=== PATIENT | female | born 1970 | race Hispanic/Latino ===

== ENCOUNTER 2017-12-20 23:45 | Emergency (ER) | payer OTHER, SELFPAY ==
[2017-12-20 23:53] VITALS: BP 113/70; PULSE 66; RESP 16; TEMP 36.6; O2SAT 98; BMI 27.4
--- NOTE | 2017-12-21 00:12 | ED_ITS ---
HPI - Back Pain/Injury General Chief Complaint: Back Pain/Injury Stated Complaint: SEVERE BACK PAIN Time Seen by Provider: 12/20/17 23:48 Source: patient Mode of arrival: ambulatory Limitations: no limitations History of Present Illness HPI Narrative: Patient is here for bilateral lower back pain. 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 She states that yesterday she lifted a greater than 50 lb bag of laundry and ?felt a pop ?states that has had pain since then. Had 1 dose of Tylenol today. Came back to work today and has had continued pain. No radiation to her legs. No saddle anesthesia. No fevers. No prior history of back problems. No loss of bowel or bladder. Related Data Previous Rx's Medication Instructions Recorded albuterol sulfate [Ventolin HFA] 0 INH Q4H #8 gm 04/05/16 fluticasone 0 INTRANASAL BID #16 gm 04/05/16 Allergies Allergy/AdvReac Type Severity Reaction Status Date / Time No Known Drug Allergies Allergy Verified 12/20/17 23:59 Review of Systems Constitutional Denies chills, Denies fever(s), Denies lethargy and Denies weakness Cardiovascular Denies chest pain, Denies irregular heart rhythm, Denies lightheadedness, Denies palpitations, Denies dyspnea, Denies dyspnea on exertion and Denies orthopnea Respiratory Denies cough, Denies dyspnea, Denies dyspnea on exertion and Denies wheezing Gastrointestinal Comments: No loss of bowel control Genitourinary Comments: No loss of bladder control Musculoskeletal Comments: Lower back pain Integumentary/Breasts Denies pruritus, Denies erythema, Denies rash and Denies wounds Neurologic Denies weakness Endocrine Denies palpitations Hematologic/Lymphatic Denies easy bruising Allergic/Immunologic Denies wheezing FOR[facility]LY [facility] Social History Smoking Status: Never smoker Exam Initial Vital Signs Initial Vital Signs: Vital Signs Temperature 98 F 12/20/17 23:53 Pulse Rate 66 12/20/17 23:53 Respiratory Rate 16 12/20/17 23:53 Blood Pressure 113/70 12/20/17 23:53 Pulse Oximetry 98 12/20/17 23:53 Const General: cooperative and well developed Nutritional Appearance: well nourished Orientation: alert, awake, oriented x3 and not confused Back/Spine/Pelvis Back: normal to inspection, back tenderness (Bilateral lower back) and No CVA tenderness Skin General: no rashes or lesions noted, No jaundice and No petechiae Neuro Other: Sensation intact bilateral lower extremities Extrem General: full ROM, no clubbing, cyanosis or edema, no pedal edema and no calf tenderness Course Orders Ordered: Discontinued Medications Ketorolac Tromethamine (Toradol) 30 mg IM NOW ONE Stop: 12/21/17 00:20 Last Admin: 12/21/17 00:29 Dose: 30 mg Vital Signs - 8 hr 12/20/17 23:53 Temperature 98 F Pulse Rate 66 Respiratory Rate 16 Blood Pressure 113/70 Pulse Oximetry 98 MDM - Back Pain/Injury MDM Narrative Medical decision making narrative: Patient with history and physical exam consistent with musculoskeletal low back pain. No red flag symptoms. No indications for radiologic studies. Patient was given a dose of Toradol here in the emergency department. She has the next 2 days off of work. I gave her a note for 3 days from now. She was instructed to take nonsteroidal anti- inflammatories with food. She was given return precautions. L and I paperwork completed. She expressed understanding and agreement with plan Discharge Plan Departure Patient Disposition: Home, Self-Care Clinical Impression: Strain of lumbar region Instructions: DI for Low Back Pain, Activity May Be Better then Rest for Low Back Pain Recovery, Exercise May Reduce Risk of Low Back Pain Activity Restrictions/Additional Instructions: Recommend that you take an anti-inflammatory such as Motrin, ibuprofen, Aleve or Naprosyn as directed on a daily basis for the next couple days. Make sure you take these medications with food. Call your primary care doctor for a follow-up. Return to the emergency department for any new or worsening symptoms Prescriptions: No Action albuterol sulfate [Ventolin HFA] 90 MCG/PUFF HFA aerosol inhaler INH Q4H Qty: 8 RF: 0 fluticasone 16 GM spray,suspension Intranasal BID Qty: 16 RF: 0 Stand Alone Forms: Work/School Restrictions
[2017-12-21] MEDS: KETOROLAC 60 MG/2 ML VIAL 30 MG IM (00:29)
[2017-12-21 01:09] VITALS: BP 108/72; PULSE 57; RESP 16; O2SAT 96
== END 2017-12-21 00:55 | disposition home or self-care (01) ==
PROVIDERS: Emergency Provider Emergency Medicine; Family Provider Physician Assistant Medical; PCP Physician Assistant Medical
DX: S39.012A Strain of muscle, fascia and tendon of lower back, initial encounter (principal); Y93.89 Activity, other specified; Y99.0 Civilian activity done for income or pay
CPT/HCPCS: 96372; 99282; 99283; J1885